=== PATIENT | female | born 1935 | race Caucasian/White ===

== ENCOUNTER 2016-10-23 12:17 | Emergency (ER) | payer MEDICARE, OTHER ==
[2016-10-23 13:00] VITALS: BP 159/44
--- NOTE | 2016-10-23 13:38 | UC ---
Complaint Female HPI - HPI Summary HPI Summary: This is an 81 yo female with afib and CHF who presents with a 2 week h/o dysuria , freq and occasional incontinence. Patient also report vulvar swelling, burning pain and yellow/white discharge. She used monistat cream with partial relief, but symptoms recurred after she stopped. No fever, abd, pain, n/v or back pain. No recent abx. - History Of Current Complaint Chief Complaint: [facility]CGU Stated Complaint: URINARY Pain Intensity: 0 Pain Scale Used: 0-10 Numeric - Allergies/Home Medications Allergies/Adverse Reactions: Allergies Allergy/AdvReac Type Severity Reaction Status Date / Time Codeine Allergy Intermediate Hallucinati Verified 10/23/16 13:09 ons Morphine Allergy Intermediate Hallucinati Verified 10/23/16 13:01 ons Home Medications: Home Medications Albuterol 2.5MG/3ML (0.083%)* [Ventolin 2.5 MG/3 ML NEB.OCRNEL*] 10/23/16 [History ] Alendronate Sodium [Alendronate Sodium-] 10/23/16 [History] Alprazolam [Alprazolam Odt] 0.5 mg PO 10/23/16 [History] Amiodarone TAB* [Cordarone Tab*] 200 mg PO DAILY 10/23/16 [History Confirmed ] Aspirin [Aspirin 81 MG TAB] 10/23/16 [History] Calcium 600 mg PO 10/23/16 [History] Diltiazem CD CAP* [Cardizem CD CAP*] 120 mg PO DAILY 10/23/16 [History Confirmed 10/23/16] Docusate CAP* [Colace Cap*] 10/23/16 [History] Hydrochlorothiazide TAB* [Hydrodiuril TAB*] 25 mg PO DAILY 10/23/16 [History Confirmed 10/23/16] Hydrocodone-Acetaminophen [Hydrocodone/Acetaminophen 10-325 mg] 1 tab PO [History] Ipratropium HFA INHALER(NF) [Atrovent Hfa Inhaler(NF)] 10/23/16 [History] Levothyroxine TAB* [Synthroid TAB*] 50 mcg PO 10/23/16 [History] Lisinopril [Zestril 10 MG-] 10 mg PO DAILY 10/23/16 [History Confirmed 10/23/16] Metoprolol Tartrate TAB* [Lopressor TAB*] 50 mg PO DAILY 10/23/16 [History Confirmed 10/23/16] Nitroglycerin 0.2 MG/HR PATCH* [Nitroglycerin 5 MG PATCH*] 10/23/16 [History] Simvastatin [Zocor 40 MG (NF)] 40 mg PO QPM 10/23/16 [History Confirmed 10/23/16 ] PMH/Surg Hx/FS Hx/Imm Hx Cardiovascular History: Cardiac Disease, Congestive Heart Failure, Atrial Fibrillation - Surgical History Surgical History: Yes Surgery Procedure, Year, and Place: hysterectomy, tailbone removed, gallbladder removed - Family History Known Family History: Positive: Cardiac Disease - Social History Alcohol Use: None Substance Use Type: None Smoking Status (MU): Former Smoker Review of Systems Constitutional: Negative Skin: Negative Eyes: Negative ENT: Negative Respiratory: Negative Cardiovascular: Negative Gastrointestinal: Negative Genitourinary: Dysuria, Frequency Motor: Negative Neurovascular: Negative Musculoskeletal: Negative Neurological: Negative Psychological: Negative All Other Systems Reviewed And Are Negative: Yes Physical Exam Triage Information Reviewed: Yes Appearance: Well-Appearing Vital Signs: Initial Vital Signs Temp 97.9 F 10/23/16 12:53 Pulse 67 10/23/16 12:53 Resp 16 10/23/16 12:53 BP 159/44 10/23/16 12:53 Pulse Ox 96 10/23/16 12:53 Vital Signs Reviewed: Yes Neck: Positive: Supple, Nontender, No Lymphadenopathy Respiratory: Positive: Lungs clear. Negative: Crackles, Rhonchi, Wheezing Cardiovascular: Positive: RRR, No Murmur Abdomen Description: Positive: Nontender, Soft Skin: Positive: Other - healing scabbed lesion on medial R ankle Diagnostics - Laboratory Diagnostic Studies Completed/Ordered: UA - trace LE Complaint Female Dx - Course Course Of Treatment: This is an 81 yo female with CHF and afib who presented with c/o 2 weeks of urinary symptoms and vulvar pain and edema with vaginal discharge. UA shows just trace LE. Will send urine for culture but empirically treat for vaginal yeast infection with diflucan. Patient instructed to continue use of monistat on external structures. - Differential Dx/Diagnosis Differential Diagnosis/HQI/PQRI: Cervicitis, Pelvic Inflammatory Disease, Urinary Tract Infection Provider Diagnoses: 1. Vaginal yeast infection Discharge - Discharge Plan Condition: Stable Disposition: HOME Prescriptions: Fluconazole 150 MG (NF) [Diflucan 150 mg (NF)] 150 mg PO ONCE #1 tab Patient Education Materials: Vulvovaginal Candidiasis (ED) Referrals: Nam Andrews MD [Primary Care Provider] - If Needed Additional Instructions: Instructions: 1. Use monistat cream 2. Take diflucan as directed, you may repeat in 24 hours if your symptoms persist 3. Your urine will be sent for culture and you will be notified if there is any growth
--- NOTE | 2016-10-24 15:24 | UC ---
Progress - Progress Note Progress Note: Based on review of chart I do not feel that we need to resubmit urine culture Harshad Garay MD 10/24/16 3:24PM
== END 2016-10-23 13:32 | disposition home or self-care (01) ==
LOC: UCCORT 12:17
DX: B37.3 Candidiasis of vulva and vagina (principal); I50.9 Heart failure, unspecified; I48.91 Unspecified atrial fibrillation; Z79.82 Long term (current) use of aspirin; Z90.710 Acquired absence of both cervix and uterus; Z90.49 Acquired absence of other specified parts of digestive tract; Z88.5 Allergy status to narcotic agent; Z87.891 Personal history of nicotine dependence
CPT/HCPCS: 81003; 99202; G0463